=== PATIENT | female | born 1970 | race Caucasian/White ===

== ENCOUNTER 2016-08-19 10:14 | Emergency (ER) | payer BC ==
[2016-08-19 10:23] VITALS: BP 107/68
--- NOTE | 2016-08-19 11:02 | UC ---
Respiratory Complaint HPI - HPI Summary HPI Summary: Nasal congestion and cough both starting about 3 days ago. Had L earache for one night, otherwise no fevers, chills, malaise. Pt has asthma that is usually well-controlled with advair, has needed her albuterol occasionally in recent days (with good effect). Mainly here because "I usually let things go too far and I didn't want to do that this time." - History of Current Complaint Chief Complaint: UCGeneralIllness Stated Complaint: COUGH Time Seen by Provider: 08/19/16 10:37 Hx Obtained From: Patient Hx Last Menstrual Period: unknown - has IUD ?: No Onset/Duration: Gradual Onset, Lasting Days Timing: Constant Severity Initially: Mild Severity Currently: Mild Character: Cough: Productive Aggravating Factors: Exertion, Deep Breaths, Recumbent Position Alleviating Factors: Bronchodilator, Upright Position Associated Signs And Symptoms: Positive: Wheezing, URI, Nasal Congestion. Negative: Fever, Chills - Allergies/Home Medications Allergies/Adverse Reactions: Allergies Allergy/AdvReac Type Severity Reaction Status Date / Time environmental Allergy Mild runny Uncoded 08/19/16 10:23 nose,runny eyes PMH/Surg Hx/FS Hx/Imm Hx Respiratory History Of: Reports: Asthma Cancer History Of: Denies: Breast Cancer - Surgical History Surgical History: None - Family History Known Family History: Positive: Diabetes - aunt - Social History Lives: With Family Alcohol Use: Weekly Substance Use Type: None Smoking Status (MU): Current Some Day Smoker Amount Used/How Often: 1 every 6 months Have You Smoked in the Last Year: No Review of Systems Constitutional: Negative Skin: Negative Eyes: Negative ENT: Nasal Discharge Respiratory: Shortness Of Breath, Cough Cardiovascular: Negative Gastrointestinal: Negative Genitourinary: Negative Motor: Negative Neurovascular: Negative Musculoskeletal: Negative Neurological: Negative Psychological: Negative All Other Systems Reviewed And Are Negative: Yes Physical Exam Triage Information Reviewed: Yes Appearance: Well-Appearing, No Pain Distress, Well-Nourished Vital Signs: Initial Vital Signs Temp 97 F 08/19/16 10:19 Pulse 76 08/19/16 10:19 Resp 16 08/19/16 10:19 BP 107/68 08/19/16 10:19 Pulse Ox 99 08/19/16 10:19 Vital Signs Reviewed: Yes Eye Exam: Normal Eyes: Positive: Conjunctiva Clear ENT: Positive: Pharynx normal, Nasal congestion, TMs normal. Negative: TM bulging, TM dull, TM red Dental Exam: Normal Neck exam: Normal Neck: Positive: Supple, Nontender, No Lymphadenopathy Respiratory Exam: Other - freq cough Respiratory: Positive: Normal breath sounds, No respiratory distress, No accessory muscle use, Rhonchi - clear with cough. Negative: Wheezing Cardiovascular Exam: Normal Cardiovascular: Positive: RRR, No Murmur Musculoskeletal Exam: Normal Neurological Exam: Normal Psychological Exam: Normal Skin Exam: Normal Diagnostic Evaluation - Laboratory O2 Sat by Pulse Oximetry: 99 Respiratory Course/Dx - Differential Dx/Diagnosis Provider Diagnoses: acute bronchitis Discharge - Discharge Plan Condition: Stable Disposition: HOME Prescriptions: Guaifenesin-Codeine [Guaiatussin AC] 5 - 10 ml PO BEDTIME #120 ml MDD 10mL Patient Education Materials: Acute Bronchitis (ED), Wheezing (ED) Referrals: Erica Eubanks MD [Primary Care Provider] - Additional Instructions: As we discussed, your symptoms are all quite viral at this time and there are no curative treatments for respiratory viruses. People with asthma are at particular risk of having asthma exacerbations when they have viral bronchitis. Use your albuterol as needed; if you are needing it more than twice per day, double your dose of advair. If this doesn't help, please see your primary care provider or return here so we can determine if you would benefit from oral steroids. Increase your fluid intake. A cool mist humidifier may make your lungs more comfortable. An expectorant (cough medicine that loosens phlegm) can help. Recovery from bronchitis can be somewhat slow, but you should not have any significant worsening or new fevers. As long as you can breathe easily and you continue to have steady improvement, it is not important how many days it takes you to get better. Call or return if you develop increasing fever, shortness of breath, chest pain , bloody sputum, or otherwise worsen. If you have not improved at all after several days, contact your primary care physician or return here.
== END 2016-08-19 11:07 | disposition home or self-care (01) ==
LOC: UCEAST 10:14
DX: J20.9 Acute bronchitis, unspecified (principal); Z72.0 Tobacco use
CPT/HCPCS: 99212; G0463

== ENCOUNTER 2016-10-29 13:21 | Emergency (ER) | payer BC ==
[2016-10-29 16:53] VITALS: BP 126/74
[2016-10-29] MEDS ORDERED: predniSONE TAB* 20 MG PO ONE (17:07)
[2016-10-29] MEDS ORDERED: Cephalexin CAP* 500 MG PO ONE ×2 (17:07→17:08)
--- NOTE | 2016-10-29 17:17 | UC ---
Throat Pain/Nasal Jordan HPI - HPI Summary HPI Summary: sore throat for 1 day fever myalgias CRUZ - History of Current Complaint Chief Complaint: UCGeneralIllness Stated Complaint: SORE THROAT Time Seen by Provider: 10/29/16 16:31 Hx Obtained From: Patient Hx Last Menstrual Period: 10/13/16 Onset/Duration: Gradual Onset, Lasting Days Severity: Moderate Pain Intensity: 4 Pain Scale Used: 0-10 Numeric Associated Signs & Symptoms: Positive: Fever - Epiglottits Risk Factors Epiglottis Risk Factors: Negative - Allergies/Home Medications Allergies/Adverse Reactions: Allergies Allergy/AdvReac Type Severity Reaction Status Date / Time environmental Allergy Mild runny Uncoded 10/29/16 16:45 nose,runny eyes PMH/Surg Hx/FS Hx/Imm Hx Previously Healthy: Yes Respiratory History Of: Reports: Asthma Cancer History Of: Denies: Breast Cancer - Surgical History Surgical History: None - Family History Known Family History: Positive: Hypertension, Diabetes - aunt - Social History Alcohol Use: Occasionally Substance Use Type: None Smoking Status (MU): Former Smoker Amount Used/How Often: 1 every 6 months Have You Smoked in the Last Year: No - Immunization History Most Recent Influenza Vaccination: not this year Review of Systems Constitutional: Fever Skin: Negative Eyes: Negative ENT: Sore Throat Respiratory: Negative Cardiovascular: Negative Gastrointestinal: Negative Genitourinary: Negative Motor: Negative Neurovascular: Negative Musculoskeletal: Myalgia Neurological: Headache Psychological: Negative All Other Systems Reviewed And Are Negative: Yes Physical Exam Triage Information Reviewed: Yes Appearance: Well-Appearing, No Pain Distress, Well-Nourished Vital Signs: Initial Vital Signs Temp 99.3 F 10/29/16 16:47 Pulse 75 10/29/16 16:47 Resp 18 10/29/16 16:47 BP 126/74 10/29/16 16:47 Pulse Ox 97 10/29/16 16:47 Eye Exam: Normal Eyes: Positive: Conjunctiva Clear ENT: Positive: Hearing grossly normal, Pharyngeal erythema, TMs normal. Negative: Tonsillar swelling, Tonsillar exudate, Trismus, Muffled/hoarse voice Neck: Positive: Supple, Enlarged Nodes @ - ant cervical Respiratory: Positive: Lungs clear, Normal breath sounds, No respiratory distress, No accessory muscle use Cardiovascular: Positive: RRR, No Murmur Musculoskeletal: Positive: ROM Intact, No Edema Neurological: Positive: Alert Psychological Exam: Normal Skin Exam: Normal Throat Pain/Nasal Course/Dx - Course Course Of Treatment: RS (+) - Differential Dx/Diagnosis Provider Diagnoses: strep throat Discharge - Discharge Plan Condition: Stable Disposition: HOME Prescriptions: Cephalexin CAP* [Keflex CAP*] 500 mg PO BID #18 cap Prednisone 60 mg PO DAILY #6 tab Patient Education Materials: Strep Throat (ED) Forms: *Work Release Referrals: Erica Eubanks MD [Primary Care Provider] -
== END 2016-10-29 17:40 | disposition home or self-care (01) ==
LOC: UCEAST 13:21
DX: J02.0 Streptococcal pharyngitis (principal); Z87.891 Personal history of nicotine dependence; J45.909 Unspecified asthma, uncomplicated
CPT/HCPCS: 87651; 99213; A9270-GY; G0463; J7512

== ENCOUNTER 2017-12-05 14:30 | Emergency (ER) | payer BC ==
[2017-12-05 15:08] VITALS: BP 101/55
--- NOTE | 2017-12-05 15:44 | RAD ---
Indication: Anterior lateral LEFT chest/breast pain following injury /elbowed 2 days ago. Pain with deep inspiration. Comparison: No relevant prior exams available on the [facility] for comparison. Technique: Dual energy PA chest and 4 view LEFT unilateral rib series. Report: Elevated lung volumes. No focal pulmonary lesion, compelling alveolar consolidation, pleural effusion, pneumothorax. The heart, pulmonary vasculature, and mediastinal contours are unremarkable. Corresponding with the region of clinical concern based on the overlying skin marker there is subtle cortical contour irregularity of the LEFT fifth rib anteriorly suspicious for a nondisplaced fracture. Unremarkable soft tissue contours. IMPRESSION: #. Probable nondisplaced fracture of the LEFT fifth rib anteriorly. Negative for associated pneumothorax. #. Elevated lung volumes may reflect obstructive lung disease or simply exuberant inspiratory effort for examination. Correlate with clinical assessment.
[2017-12-05] MEDS ORDERED: Ibuprofen TAB* 600 MG PO ONE ×2 (15:48→15:56)
--- NOTE | 2017-12-05 16:04 | UC ---
General HPI - HPI Summary HPI Summary: 47 year old female with history of allergy here for left sided rib pain. Reports she got elbowed while play fighting with her boyfriend. Developed mils pain but worsened over the course of the past two days. Denies sob. Worsened with movement or cough or sneezing. No other complaints. - History of Current Complaint Chief Complaint: UCChestPain Stated Complaint: RIB INJURY Time Seen by Provider: 12/05/17 15:14 Hx Last Menstrual Period: one week ago Onset/Duration: Sudden Onset Onset Severity: Mild Current Severity: Moderate Pain Intensity: 8 - Allergy/Home Medications Allergies/Adverse Reactions: Allergies Allergy/AdvReac Type Severity Reaction Status Date / Time environmental Allergy Mild runny Uncoded 12/05/17 15:09 nose,runny eyes PMH/Surg Hx/FS Hx/Imm Hx Previously Healthy: Yes Respiratory History: Asthma, Other - allergies Other Respiratory History: allergies - Surgical History Surgical History: None - Family History Known Family History: Positive: Hypertension, Diabetes - aunt - Social History Alcohol Use: Occasionally Substance Use Type: None Smoking Status (MU): Former Smoker Amount Used/How Often: 1 every 6 months Have You Smoked in the Last Year: No - Immunization History Most Recent Influenza Vaccination: not this year Review of Systems Constitutional: Negative Skin: Negative Eyes: Negative ENT: Negative Cardiovascular: Negative, Chest Pain Gastrointestinal: Negative Genitourinary: Negative Motor: Negative Neurovascular: Negative Musculoskeletal: Negative Neurological: Negative Psychological: Negative All Other Systems Reviewed And Are Negative: Yes Physical Exam Triage Information Reviewed: Yes Vital Signs: Initial Vital Signs Temp 36.9 C 12/05/17 15:04 Pulse 83 12/05/17 15:04 Resp 18 12/05/17 15:04 BP 101/55 12/05/17 15:04 Pulse Ox 99 12/05/17 15:04 Eye Exam: Normal ENT Exam: Normal Dental Exam: Normal Neck exam: Normal Neck: Positive: 1 Respiratory Exam: Normal Cardiovascular Exam: Normal Cardiovascular: Positive: Other: - left 4 and 5th rib point tenderness Abdominal Exam: Normal Musculoskeletal Exam: Normal Neurological Exam: Normal Psychological Exam: Normal Skin Exam: Normal Diagnostics - Radiology No standard instances Xray Interpretation: No Acute Changes Radiology Interpretation Completed By: Radiologist Course/Dx - Course Course Of Treatment: Incentive spirometry given. NSAID. No pneumothorax - Differential Dx - Multi-Symptom Provider Diagnoses: Rib fracture Discharge - Sign-Out/Discharge Documenting (check all that apply): Discharge/Admit/Transfer - Discharge Plan Condition: Good Disposition: HOME Prescriptions: Ibuprofen TAB* [Motrin TAB* 400 MG] 400 mg PO Q6H PRN #30 tab PRN Reason: Pain Lidocaine 1 each TP BID PRN #20 patch PRN Reason: rib pain Patient Education Materials: Rib Fracture (ED) Referrals: Erica Eubanks MD [Primary Care Provider] - Additional Instructions: Use incentive spirometry - Billing Disposition and Condition Condition: GOOD Disposition: Home
== END 2017-12-05 16:25 | disposition home or self-care (01) ==
LOC: UCEAST 14:30
DX: S22.32XA Fracture of one rib, left side, initial encounter for closed fracture (principal); R07.81 Pleurodynia; Z91.09 Other allergy status, other than to drugs and biological substances; Z87.891 Personal history of nicotine dependence; W50.0XXA Accidental hit or strike by another person, initial encounter; Y92.9 Unspecified place or not applicable
CPT/HCPCS: 99212; A9270-GY; G0463

== ENCOUNTER 2018-02-15 14:30 | Emergency (ER) | payer BC ==
[2018-02-15 14:56] VITALS: BP 108/60
--- NOTE | 2018-02-15 16:15 | UC ---
Eye Complaint HPI - HPI Summary HPI Summary: The patient is a 48 y/o F presenting to [facility] with a chief complaint of swollen and itchy eyes with a crust-like discharge starting a few days ago. She is allergic to dogs but had been petting one earlier in the day when her symptoms started. The pain is rated 4/10 in severity. There are no aggravating or alleviating factors. She has hx of asthma. - History of Current Complaint Chief Complaint: UCEye Stated Complaint: EYE COMPLAINT Time Seen by Provider: 02/15/18 14:56 Hx Obtained From: Patient Hx Last Menstrual Period: 01/09/18 Onset/Duration: Sudden Onset, Lasting Days, Still Present Timing: Constant Severity Initially: Mild Severity Currently: Mild Pain Intensity: 4 Pain Scale Used: 0-10 Numeric Aggravating Factor(s): Nothing Alleviating Factor(s): Nothing Associated Signs And Symptoms: Positive: Swelling - Allergies/Home Medications Allergies/Adverse Reactions: Allergies Allergy/AdvReac Type Severity Reaction Status Date / Time environmental Allergy Mild runny Uncoded 02/15/18 14:56 nose,runny eyes Home Medications: Home Medications diPHENhydraMINE PO* [Benadryl PO 25 MG TAB*] 25 mg PO Q8HR PRN 02/15/18 [ History Confirmed 02/15/18] PMH/Surg Hx/FS Hx/Imm Hx Endocrine History: Other Other Endocrine History: NEGATIVE: diabetes Cardiovascular History: Other Other Cardiovascular History: NEGATIVE: HTN Respiratory History: Asthma - Surgical History Surgical History: None - Family History Known Family History: Positive: Hypertension, Diabetes - aunt - Social History Alcohol Use: Occasionally Substance Use Type: None Smoking Status (MU): Former Smoker Amount Used/How Often: 1 every 6 months Have You Smoked in the Last Year: No When Did the Patient Quit Smoking/Using Tobacco: 3 years - Immunization History Most Recent Influenza Vaccination: not this year Review of Systems Skin: Other - NEGATIVE: rash Eyes: Other - itching and scratching in both eyes, crust in eyes, swelling in eyes All Other Systems Reviewed And Are Negative: Yes Physical Exam - Summary Physical Exam Summary: VITAL SIGNS: Reviewed. GENERAL: Patient is a well-developed and nourished female who is lying comfortable in the stretcher. Patient is not in any acute respiratory distress. HEAD AND FACE: Normocephalic EYES: PERRLA, EOMI x 2, Injected conjunctiva with some yellow-abdifatah crust in both eyes EARS: Hearing grossly intact. MOUTH: Oropharynx within normal limits. NECK: Supple, trachea is midline, no adenopathy, no JVD, no carotid bruit. CHEST: Symmetric, no tenderness at palpation LUNGS: Clear to auscultation bilaterally. No wheezing or crackles. CVS: Regular rate and rhythm, S1 and S2 present, no murmurs or gallops appreciated. ABDOMEN: Soft, non-tender. Bowel sounds are normal. No abdominal abnormal pulsations. EXTREMITIES: Full ROM in all major joints, no edema, no cyanosis or clubbing. NEURO: Alert and oriented x 3. No acute neurological deficits. Speech is normal and follows commands. SKIN: Dry and warm Triage Information Reviewed: Yes Vital Signs: Initial Vital Signs Temp 98.3 F 02/15/18 14:50 Pulse 74 02/15/18 14:50 Resp 16 02/15/18 14:50 BP 108/60 02/15/18 14:50 Pulse Ox 98 02/15/18 14:50 Vital Signs Reviewed: Yes Eye Complaint Course/Dx - Course Course Of Treatment: Patient is a 48-year-old female who presents to the urgent care with chief complaint of "pink eye". She reports that she has been having itching in both eyes for about a week, and she has been scratching her eyes. She has developed a crusty discharge in the morning in both eyes. It seems that the patient ihas bilateral allergic conjunctivitis possibly secondary to allergic rhinitis. Because of the yellowish crusty discharge, I am placing the patient on ofloxacin, and she will also be given Patanol for the itching. She has no visual disturbances. Therefore the patient was discharged home with follow-up with PCP. All her concerns were addressed and she has no further questions. - Differential Dx/Diagnosis Provider Diagnoses: acute conjunctivitis, allergic rhinitis Discharge - Sign-Out/Discharge Documenting (check all that apply): Patient Departure - Patient will be discharged home. All imaging exams completed and their final reports reviewed: No Studies - Discharge Plan Condition: Stable Disposition: HOME Prescriptions: Ofloxacin 0.3% OTIC.BEAU* [Floxin 0.3% OTIC.BEAU*] 1 drop .SEE ORDER Q4H #1 btl Olopatadine 0.1% OPHTH (NF) [Patanol 0.1% OPHTH (NF)] 1 drop BOTH EYES BID #1 btl Patient Education Materials: Allergic Rhinitis (DC), Conjunctivitis (ED) Referrals: Erica Eubanks MD [Primary Care Provider] - Additional Instructions: Take medications as instructed and adhere to plan Increase your fluid intake Return to the or go to the emergency department if symptoms worsen Follow-up with primary care physician in next 2-3 days - Billing Disposition and Condition Condition: STABLE Disposition: Home - Attestation Statements Document Initiated by Scribe: Yes Documenting Scribe: Cristin Pendleton Provider For Whom Terry is Documenting (Include Credential): Dr. Earnest Garcia MD Scribe Attestation: Cristin Dela Cruz scribed for Dr. Earnest Garcia MD on 02/15/18 at 1803. Scribe Documentation Reviewed: Yes Provider Attestation: The documentation as recorded by the Cristin acosta accurately reflects the service I personally performed and the decisions made by me, Dr. Earnest Garcia MD
== END 2018-02-15 16:05 | disposition home or self-care (01) ==
LOC: UCEAST 14:30
DX: H10.33 Unspecified acute conjunctivitis, bilateral (principal); J30.9 Allergic rhinitis, unspecified; Z87.891 Personal history of nicotine dependence
CPT/HCPCS: 99212; G0463

== ENCOUNTER 2018-08-05 14:22 | Emergency (ER) | payer BC ==
[2018-08-05 14:50] VITALS: BP 112/92
--- NOTE | 2018-08-05 15:14 | UC ---
Eye Complaint HPI - HPI Summary HPI Summary: 48 yo female presents with eye redness. She tells me that 3 days ago developed LEFT eye redness, itching, and clear/yellow drainage. Since that time these same symptoms have spread to her right eye. She wears glasses, but never contacts. Denies fever, chills, sinus symptoms, vision changes, FB into eye. Also over the last week or two has noticed "bites" on her torso, back, and right arm - very itchy. Has not seen any bugs or insects on her furniture or bed. Noone else in the household has similar "bites". Has not been using any creams. - History of Current Complaint Chief Complaint: UCEye Stated Complaint: EYE ISSUE Time Seen by Provider: 08/05/18 15:14 Hx Last Menstrual Period: unknwon Onset/Duration: Gradual Onset Timing: Constant Severity Initially: Mild Severity Currently: Moderate Pain Intensity: 6 Pain Scale Used: 0-10 Numeric - Allergies/Home Medications Allergies/Adverse Reactions: Allergies Allergy/AdvReac Type Severity Reaction Status Date / Time environmental Allergy Mild runny Uncoded 08/05/18 14:50 nose,runny eyes PMH/Surg Hx/FS Hx/Imm Hx Respiratory History: Asthma Psychological History: Anxiety, Depression - Surgical History Surgical History: None - Family History Known Family History: Positive: Hypertension, Diabetes - aunt - Social History Occupation: Employed Full-time Lives: With Family Alcohol Use: Weekly Substance Use Type: None Smoking Status (MU): Former Smoker Amount Used/How Often: 1 every 6 months Have You Smoked in the Last Year: No When Did the Patient Quit Smoking/Using Tobacco: 3 years - Immunization History Most Recent Influenza Vaccination: not this year Review of Systems All Other Systems Reviewed And Are Negative: Yes Constitutional: Positive: Negative Skin: Positive: Other - Bites Eyes: Positive: Drainage, Eye Redness ENT: Positive: Negative Respiratory: Positive: Negative Cardiovascular: Positive: Negative Gastrointestinal: Positive: Negative Neurovascular: Positive: Negative Neurological: Positive: Negative Psychological: Positive: Negative Physical Exam - Summary Physical Exam Summary: GENERAL: WDWN. No pain distress. SKIN: On torso, back, and right arm there are 2mm areas excoriations and bug bites. No edema, erythema, streaking. HEENT: Head: AT/NC Eyes: EOM intact. PERRLA. B/L EYES: Mild scleral injection. Conjunctiva with mild erythema and inflammation. Mild clear/yellow discharge. No FBs appreciated Nose: NTTP maxillary and frontal sinus. NECK: Supple. Nontender. No lymphadenopathy. CHEST: No accessory muscle use. Breathing comfortably and in no distress. CV: Pulses intact. Cap refill <2seconds NEURO: Alert. PSYCH: Age appropriate behavior. Triage Information Reviewed: Yes Vital Signs: Initial Vital Signs Temp 98.2 F 08/05/18 14:47 Pulse 65 08/05/18 14:47 Resp 18 08/05/18 14:47 BP 112/92 08/05/18 14:47 Pulse Ox 99 08/05/18 14:47 Vital Signs Reviewed: Yes Eye Complaint Course/Dx - Course Course Of Treatment: B/L conjunctivitis. I am unsure the cause of her rash/bites , but will treat her for scabies/bed bugs and have her check her house. F/u if symptoms do not improve - Differential Dx/Diagnosis Provider Diagnosis: Conjunctivitis, Bug bites Discharge - Sign-Out/Discharge Documenting (check all that apply): Patient Departure All imaging exams completed and their final reports reviewed: No Studies - Discharge Plan Condition: Stable Disposition: HOME Prescriptions: Ofloxacin 0.3% (Eye Drop) [Ocuflox OPTH 0.3% (Eye Drop)] 1 drop BOTH EYES QID # 1 btl Permethrin 1% LOTION* [Nix 1% LOTION*] 1 applic TOPICAL SEE INSTRUCTIONS #1 btl Patient Education Materials: Insect Bite or Sting (ED), Conjunctivitis (ED) Referrals: Erica Eubanks MD [Primary Care Provider] - Additional Instructions: If you develop a fever, shortness of breath, chest pain, new or worsening symptoms - please call your PCP or go to the ED. - Billing Disposition and Condition Condition: STABLE Disposition: Home
== END 2018-08-05 15:35 | disposition home or self-care (01) ==
LOC: UCEAST 14:22
DX: H10.9 Unspecified conjunctivitis (principal); S40.861A Insect bite (nonvenomous) of right upper arm, initial encounter; J45.909 Unspecified asthma, uncomplicated; Z87.891 Personal history of nicotine dependence; Z91.09 Other allergy status, other than to drugs and biological substances; W57.XXXA Bitten or stung by nonvenomous insect and other nonvenomous arthropods, initial encounter; Y92.9 Unspecified place or not applicable
CPT/HCPCS: 99212; G0463